=== PATIENT | male | born 1995 | race Hispanic/Latino ===

== ENCOUNTER 2019-10-20 11:03 | Emergency (ER) | payer BC, OTHER ==
[2019-10-20 17:13] LABS: SARS-CoV-2 orf1ab Positive
[2019-10-20 17:14] LABS: SARS-CoV-2 MS2 Positive; SARS-CoV-2 N Gene Positive; SARS-CoV-2 S Gene Positive
== END 2019-10-20 12:15 | disposition home or self-care (01) ==
LOC: ERS 11:03
DX: U07.1 COVID-19 (principal); J02.9 Acute pharyngitis, unspecified
CPT/HCPCS: 87635; 99283; U0003